=== PATIENT | female | born 1985 | race Caucasian/White ===

== ENCOUNTER → 2017-10-15 | Outpatient (CLI) | payer OTHER ==
[~2017-10-15] MED LIST: BENADRYL25 MG PO; BIRTH CONTROL; IBUPROFEN 800800 MG PO; NORCO 5-325 TA1 EACH PO; ZOLOFT50 M1 PO
== END ==
LOC: M.MRI 07:13
DX: M51.16 Intervertebral disc disorders with radiculopathy, lumbar region (principal); M12.88 Other specific arthropathies, not elsewhere classified, other specified site; M43.16 Spondylolisthesis, lumbar region

== ENCOUNTER 2018-03-05 20:12 | Emergency (ER) | payer OTHER ==
[~2018-03-05] VITALS: Ht 180.3 cm; Wt 108.9 kg
[2018-03-05 21:42] LABS: HEMATOCRIT 32.3 % (37.0-47.0); HEMOGLOBIN 10.3 gm/dL (12.0-15.0); MCH 27.3 pg (26.0-34.0); MCHC 31.9 g/dL (28.0-37.0); MCV 85.3 fL (80.0-100.0); MPV 7.5 fl. (7.2-11.1); NUCLEATED RBCS 0 /100WBC; PLATELET COUNT* 534 thou/uL (150-400); RBC 3.79 mil/uL (4.20-5.00); RDW-CV 12.9 % (10.5-14.5); WBC 17.6 thou/uL (4.0-11.0)
[2018-03-05 21:43] LABS: ANION GAP 8 mmol/L (7-16); BUN 9 mg/dL (7-18); CALCIUM 9.2 mg/dL (8.5-10.1); CHLORIDE 102 mmol/L (98-107); CO2 30 mmol/L (21-32); CREATININE 0.9 mg/dL (0.6-1.3); GLUCOSE 121 mg/dL (70-99); POTASSIUM 4.1 mmol/L (3.5-5.1); SODIUM 140 mmol/L (136-145)
[2018-03-05 21:47] LABS: URINE BILIRUBIN NEGATIVE (Negative); URINE BLOOD NEGATIVE (Negative); URINE CLARITY CLEAR; URINE COLOR YELLOW; URINE GLUCOSE-RANDOM NEGATIVE (Negative); URINE KETONES NEGATIVE (Negative); URINE LEUKOCYTES-REFLEX NEGATIVE (Negative); URINE NITRITE-REFLEX NEGATIVE (Negative); URINE PROTEIN NEGATIVE (Negative); URINE SPECIFIC GRAVITY 1.025 (1.005-1.030); URINE UROBILINOGEN 0.2 E.U./dl (0.2-1.0)
[2018-03-05 21:55] LABS: PROTIME 9.8 Seconds (9.20-11.50)
[2018-03-05 21:58] LABS: ALBUMIN 3.2 g/dL (3.4-5.0); ALKALINE PHOSPHATASE 160 U/L (46-116); LIPASE 154 U/L (73-393); NT-PRO BRAIN NAT PEPTIDE 18 pg/mL (<300); SGOT 92 U/L (15-37); SGPT 97 U/L (30-65); TOTAL BILIRUBIN 0.3 mg/dL (<0.1-1.0); TOTAL PROTEIN 7.2 g/dL (6.4-8.2); TROPONIN-I LEVEL <0.06 ng/mL (<0.06)
[2018-03-05 22:17] LABS: ABSOLUTE LYMPHOCYTES 1.4 thou/uL (0.8-5.3); ABSOLUTE MONOCYTES 0.2 thou/uL (0.0-1.2); ATYPICAL LYMPHS 3 %; PLATELET ESTIMATE ADEQUATE
[2018-03-06] MEDS ORDERED: ZOFRAN ODT4 MG PO (01:06)
[2018-03-06] MEDS ORDERED: NORCO 7.5-3251 EACH PO (01:06)
[2018-03-06 01:15] VITALS: BP 128/59
--- NOTE | 2018-03-06 11:54 | EKG ---
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
--- NOTE | 2018-03-06 11:55 | EKG ---
[place] [address] ELECTROCARDIOGRAM REPORT Name: FRANNY DICKERSON Room: [facility] Benjamin#: [id number] Admission: 03/05/18 Attend Phys: Discharge: 03/06/18 Date of : 87 Report #: [id number] THIS REPORT FOR: //name// [facility] ED Test Date: 2018-03-05 Test Time: 21:46:29 Pat Name: FRANNY DICKERSON Department: Room: Gender: F Cell Maker: Bret SOSA : 1985 Requested By: Adeline Ro Order Number: [id number] MD: Angel Baugh Measurements Intervals [place] Rate: 67 P: 47 MD: 156 QRS: 8 QRSD: 88 T: 47 QT: 407 QTc: 430 Interpretive Statements Sinus rhythm nonspecific st changes Electronically Signed On 03-06-2018 11:54:58 [employer] by Angel Baugh [email or web address] <ELECTRONICALLY SIGNED> By: Angel Baugh MD, [facility] 03/06/18 1154 [id number] [id number] Angel Baugh MD, FACC /EPI
== END 2018-03-06 01:18 | disposition home or self-care (01) ==
LOC: M.ERS 20:12
PROVIDERS: Emergency Medicine
DX: K80.20 Calculus of gallbladder without cholecystitis without obstruction (principal); F41.9 Anxiety disorder, unspecified

== ENCOUNTER → 2018-04-02 | Day surgery (SDC) | payer OTHER ==
[~2018-04-02] MED LIST changes: +BIOTIN1000 MCG PO; +NORCO 7.5-3251 EACH PO; +VITAMIN D1000 UNI1 PO; +ZOFRAN ODT4 MG PO
[2018-04-02 07:16] LABS: HEMATOCRIT 34.3 % (37.0-47.0); HEMOGLOBIN 11.2 gm/dL (12.0-15.0)
--- NOTE | 2018-04-02 12:18 | OP ---
[address] [address] OPERATIVE REPORT Name: FRANNY DICKERSON Room: [facility] M.R.#: [id number] Admission: 04/02/18 Attend Phys: Laurie Lou DO Discharge: Date of : 87 Report #: [id number] THIS REPORT FOR: //name// CC: Laurie Rangel DICTATED BY: Slick Escobar DO PREOPERATIVE DIAGNOSIS: Cholecystitis with cholelithiasis. POSTOPERATIVE DIAGNOSIS: Cholecystitis with cholelithiasis. SURGEON: Laurie Lou DO CO-SURGEON: Slick Escobar, PGY2. LAYOUT FORMER: Eugenie, PGY-3. FINDINGS: Distended gallbladder with gallstones, incidental right inguinal hernia. OPERATION PERFORMED: Laparoscopic cholecystectomy. ANESTHESIA: General and local anesthesia. ESTIMATED BLOOD LOSS: 2. SPECIMENS REMOVED: Gallbladder. COMPLICATIONS: None. HISTORY OF PRESENT ILLNESS: The patient is a pleasant 32-year-old female who presented to the office with recent history of right upper quadrant midepigastric pain, worse with greasy, fried, fatty foods. She did have an ultrasound in the Emergency Room that did show multiple gallstones within the gallbladder. It was discussed that she should undergo laparoscopic cholecystectomy to resolve symptoms. Risks and complications were discussed include bleeding, infection, injury to surrounding structures, possible open procedure, possible drain placement, and risks of anesthesia. She acknowledged her understanding and agreed to proceed with surgery. DESCRIPTION OF PROCEDURE: After consent was obtained, the patient was taken to the operating room and placed in the supine position. SCDs applied to bilateral lower extremities. Two grams Ancef given for surgical prophylaxis. Safety belt placed across the patient's waist. General anesthesia was administered without complication. The patient was intubated. The [id number] [id number] OPERATIVE REPORT Name: FRANNY DICKERSON Room: [facility].#: [id number] Admission: 04/02/18 Attend Phys: Laurie Lou DO Discharge: Date of : 87 Report #: [id number] draped in a standard sterile fashion. Timeout was performed to confirm the patient and the procedure. Transverse incision was made using 11 blade scalpel just below the umbilicus. S retractors were used to bluntly dissect down to the level of the fascia. Hemostasis was ensured with electrocautery. Fascia was grasped between 2 Kochers and elevated. The fascia was scored with electrocautery. Hemostat was used to bluntly enter the peritoneum. Finger sweep was performed to ensure no intra-abdominal adhesions. Two stitches of 0 Vicryl were placed on either side of the fascia, 10 mm Tala trocar was then inserted into the abdomen. Insufflation was initiated and camera was inserted. The intra-abdominal contents were inspected. The gallbladder could be seen just under the edge of the liver. Inspection of the intra-abdominal contents did reveal a right inguinal hernia. This was small. A second 11 mm trocar was placed in subxiphoid under direct visualization. Two 5 mm trocars were placed in the right upper quadrant under direct visualization. The patient was placed in reverse Trendelenburg, rotated to the left. The gallbladder was grasped and elevated. Attention was turned towards dissecting out the cystic artery and cystic duct. This was done using a combination of hook electrocautery and blunt dissection with [place] dissector. After both structures were dissected out, they could be seen easily going up into the gallbladder. The edge of the liver could be seen behind both structures, confirming the critical view of safety. The cystic artery itself was very short and could be seen coming off of what appeared to be the right hepatic artery. Both cystic artery and cystic duct were clipped twice proximally and once distally. Both structures were cut. There was a posterior artery coming off of the gallbladder, diving back behind the liver. This was also clipped and cut. The gallbladder was then dissected off the liver using electrocautery. Hemostasis was ensured. The gallbladder was placed in laparoscopic EndoCatch bag. Attention was turned to inspecting our clips. All clips appeared to be in good position. There was no evidence of bile leak or bleeding. Insufflation was let down and all trocars were removed under direct visualization. The gallbladder was removed from the abdomen and did have multiple small gallstones and did appear to show evidence of chronic cholecystitis. The infraumbilical fascia was closed with 1 stitch of 0 Vicryl in a [id number] fashion. Subcutaneous tissue was closed with 3-0 Vicryl. All skin incisions were closed with 4-0 Monocryl. Sterile dressings applied over top. All counts were correct at the end of the case. The patient was awoken from anesthesia and transferred to PACU in stable condition. <ELECTRONICALLY SIGNED> By: Laurie Lou DO 04/02/18 1218 1023 [id number] Lou DO /nt
== END | disposition home or self-care (01) ==
LOC: M.SUR 06:40
PROVIDERS: Surgery
DX: K80.10 Calculus of gallbladder with chronic cholecystitis without obstruction (principal); K40.90 Unilateral inguinal hernia, without obstruction or gangrene, not specified as recurrent; Z79.899 Other long term (current) drug therapy; Z79.891 Long term (current) use of opiate analgesic

== ENCOUNTER → 2019-03-03 | Outpatient (CLI) | payer OTHER | LOC: M.ULTRA 07:30 | DX: K76.0 Fatty (change of) liver, not elsewhere classified (principal); Z90.49 Acquired absence of other specified parts of digestive tract; Z88.8 Allergy status to other drugs, medicaments and biological substances; Z88.2 Allergy status to sulfonamides ==

== ENCOUNTER → 2020-09-25 | Outpatient (CLI) | payer OTHER | LOC: M.ULTRA 09:00 | PROVIDERS: ATTEND Specialist | DX: K76.0 Fatty (change of) liver, not elsewhere classified (principal); R79.89 Other specified abnormal findings of blood chemistry; Z90.49 Acquired absence of other specified parts of digestive tract ==